=== PATIENT | male | born 1970 | race African-American/Black ===

== ENCOUNTER 2024-01-22 15:39 | Emergency (ER) | payer OTHER ==
[2024-01-22] VITALS (14 sets, daily range): BP systolic 98–117; BP diastolic 53–79
[~2024-01-22] VITALS: Ht 182.9 cm; Wt 100.0 kg
[2024-01-22 16:18] LABS: BASO% 0.7 % (0-3); EOS% 0.7 % (0-8); HEMATOCRIT 51.8 % (39.0-50.0); HEMOGLOBIN 16.3 g/dl (14.0-18.0); IMMATURE GRANULOCYTES 0.4 % (0.0-5.0); LYMPH% 11.9 % (15-41); MEAN CELL VOLUME 91.4 fL CALC (80.0-100.0); MEAN CORPUSCULAR HGB 28.7 pG CALC (26.0-32.0); MEAN CORPUSCULAR HGB CONC 31.5 g/dL CAL (32.0-36.0); MONO% 12.2 % (2-13); NEUT# 6.34 thou/uL (1.82-7.42); NEUT% 74.1 % (42-76); RED BLOOD COUNT 5.67 mill/uL (4.70-6.10); RED CELL DISTRI WIDTH 13.7 % (11.5-15.5)
[2024-01-22] MEDS ORDERED: THIAMINE HYDRO100 MG PO (16:54)
[2024-01-22] MEDS ORDERED: NIMODIPINE30 MG PO (16:55)
[2024-01-22] MEDS ORDERED: LEVETIRACETAM500 MG PO (16:55)
[2024-01-22] MEDS ORDERED: LOVENOX40 MG/0.4 SC (16:56)
[2024-01-22] MEDS ORDERED: MAXZIDE-25MG1 COMBO PO (16:56)
[2024-01-22] MEDS ORDERED: ATORVASTATIN CA20 MG PO (16:57)
[2024-01-22 17:18] LABS: URINE BLOOD DIPSTICK Negative (NEGATIVE); URINE GLUCOSE - DIPSTICK Negative (NEGATIVE); URINE KETONE Trace mg/dL (NEGATIVE); URINE LEUK ESTERASE Negative (NEGATIVE); URINE NITRITE - DIPSTICK Negative (Negative); URINE PH 5.5 (4.5-8.0); URINE PROTEIN - DIPSTICK Negative (NEG-TRACE); URINE SPECIFIC GRAVITY >=1.030; URINE UROBILINOGEN - DIPSTICK 0.2 E.U./dL (0.2)
[2024-01-22 17:23] LABS: URINE COLOR Yellow
[2024-01-22 18:03] LABS: ALBUMIN 4.3 g/dL (3.2-5.0); BILIRUBIN, TOTAL 0.7 mg/dL (0.2-1.3); CREATININE 1.1 mg/dL (0.7-1.3); POTASSIUM 4.5 mmol/l (3.5-5.1); TOTAL PROTEIN 8.1 g/dL (6.3-8.2)
== END 2024-01-22 21:25 | disposition short-term general hospital (02) | DRG 80 ==
LOC: ED 15:39
PROVIDERS: Family Medicine
DX: G93.6 Cerebral edema (principal); G93.5 Compression of brain; I10 Essential (primary) hypertension; B19.20 Unspecified viral hepatitis C without hepatic coma; E78.5 Hyperlipidemia, unspecified; Z86.79 Personal history of other diseases of the circulatory system